=== PATIENT | male | born 1945 | race Caucasian/White ===

== ENCOUNTER → 2023-03-04 | Outpatient (CLI) | payer MEDICARE, SELFPAY ==
--- NOTE | 2023-03-04 | FLU_PTH ---
PATIENT: WU BREAUX LOC: [facility]#:[id number] AGE/SX: 77/M ROOM: RE03/04/[address]: Dr. Olga Lidia Lundberg MD : [id number] BED: DIS: 03/04/2023 SPEC #: [id number] RECD: 03/04/23 16:54 STATUS: MJ LEIJA #: [id number] DEN: 03/04/23 00:[address]: Olga Lidia Lundberg DEPT: CYTOLOGY RECD BY: Angel Yuan Tissues: A - Abdomen, NOS B - Abdomen, NOS Procedures: Special Stain Group II Surgery Specimen Level IV Cytospin Fluid HEADER OPERATION: Fine needle aspiration, RLQ abdominal wall mass PRE-OP DIAGNOSIS: Abnormal ultrasound abdominal wall TISSUE SUBMITTED: A - FNA right lower quadrant abdominal wall fluid, B - FNA right lower quadrant abdominal wall x6 slides DIAGNOSIS CYTOLOGY A. Fine needle aspiration, right lower quadrant abdominal wall fluid (cytospin and cell block): Negative for malignant cells. See comment. B. Fine needle aspiration, right lower quadrant abdominal wall (smears): Negative for malignant cells. See comment. AM:marilou 03/08/2023 COMMENT A. The specimen contains mostly blood with scattered macrophages. B. The specimen mostly contains blood with scattered mature adipose tissue and scattered macrophages. Clinical correlation is suggested. CYTOLOGY STUDY Slides are reviewed. CYTOLOGY GROSS A - Received is 20 ml of brown fluid labeled with the patient's name and and designated per the requisition as RLQ abdominal wall. Submitted for cytology preparation including cell block. B - Received are six smears labeled with the patient's name and designated per the requisition as RLQ abdominal wall. Submitted for staining. / marilou 03/07/2023 TC:2 CPT: 99133, 52389, 88583
== END | disposition home or self-care (01) ==
PROVIDERS: Referring Provider Surgery; Visit Provider Surgery
DX: R93.3 Abnormal findings on diagnostic imaging of other parts of digestive tract (principal)
CPT/HCPCS: 88108; 88305; 88313

== ENCOUNTER 2024-08-28 16:20 | Observation (INO) | payer MEDICARE, OTHER, SELFPAY ==
[2024-08-28] VITALS (11 sets, daily range): BP systolic 97–136; BP diastolic 59–83; PULSE 58–93; RESP 13–19; TEMP 36.3–36.8; O2SAT 96–99; BMI 26.5; BMI 26.7
--- NOTE | 2024-08-28 16:35 | EKG12_ITS ---
Test Reason : SYNCOPE Blood Pressure : */* mmHG Vent. Rate : 63 BPM Atrial Rate : 63 BPM P-R Int : 178 ms QRS Dur : 144 ms QT Int : 456 ms P-R-T Axes : 24 -31 -22 degrees QTcB Int : 466 ms Normal sinus rhythm Left axis deviation Right bundle branch block Abnormal ECG Confirmed by SANDRA RICHARD, MONIE ([id number]), sewer ESTELA MELO ([id number]) on 09/03/2024 11:18:20 AM Referred By: Confirmed By: MONIE FLORES MD
--- NOTE | 2024-08-28 16:43 | EDS_ITS ---
HPI History of Present Illness Chief Complaint: Syncope Informant: patient Onset/Context/Timing Onset: Today Current Severity: Gone Maximum Severity: Moderate Narrative Narrative: 79-year-old male history of polycythemia vera and hypertension of which she is on losartan. He was in his normal state of health that he is feeling well today. He ate breakfast had a small bowl of soup for lunch. He had gone to a driving range and hit golf balls today. He was at home with family he had just literally a sip of wine and started to smoke marijuana when he had a syncopal episode. who is with him said he was unresponsive for over a minute. No fall no injury. They deny any recent illness. No headache or chest pain. No shortness of breath or abdominal pain. No recent vomiting or diarrhea. No melena. He had a prior episode like this once before. Currently is feeling much better. Prior similar symptoms: Yes Recent Illness/Hospitalization: No PFSH PFSH Medical History Hypercholesteremia Hypertension Spinal stenosis BPH (benign prostatic hyperplasia) Glaucoma Polycythemia vera Home Medications ?Medication ?Instructions ?Recorded ?Last Taken ?Type atorvastatin 20 mg tablet 20 mg PO QHS 09/01/15 Unknow n History hydroxyurea 500 mg capsule 500 mg PO .COMPLEX 08/28/24 Unknown History losartan 25 mg tablet 25 mg PO DAILY 08/28/24 Unkn own History Allergy/AdvReac Type Severity Reaction Status Date / Time Penicillins Allergy Other Verified 08/28/24 16:28 Social History Smoking Status: Former smoker ROS ROS ED ROS Narrative Denies recent illness. Constitutional Constitutional ED: Denies chills or fever(s) Eyes Eyes: Denies blurry vision ENT ENT ED: Denies ear pain Cardiovascular Cardiovascular: Denies chest pain or palpitations Respiratory/Chest Respiratory/Chest: Denies cough or dyspnea Gastrointestinal Gastrointestinal: Denies abdominal pain Genitourinary Genitourinary ED: Denies dysuria or hematuria Musculoskeletal Musculoskeletal: Denies arthralgias or back pain Integumentary Denies abscess Neurologic Neurologic: Denies headache(s) Psychiatric Psychiatric: Denies anxiety Endocrine Endocrinology: Denies cold intolerance Hematologic/Lymphatic Hematologic/Lymphatic: Reports none Allergic/Immunologic Allergic/Immunologic ED: Denies mouth swelling, tongue swelling or urticaria EXAM Physical Exam Narrative Exam Narrative: Well-appearing 79-year-old male sitting upright in bed. No acute distress. and friend at bedside. His initial blood pressure 1 mildly low at 98/70. He denies being lightheaded or dizzy. H EENT exam pupils round react light. Extra motions are intact. No facial droop. Normal speech. No face or head trauma. Nontender. Neck nontender. Back nontender. Lungs clear to auscultation bilaterally. Heart regular rhythm rate about 60 no murmur. Chest wall ribs nontender. Abdomen soft nontender. Moving all 4 extremities. Nontender no edema. 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 Dorsi plantarflexion intact. No drift. Neurologically is awake and alert. Answering questions following commands. NIH is 0. Rapid hand movements normal. [id number] normal. Const Vital Signs: 08/28/24 16:21 08/28/24 16:31 08/28/24 16:41 Temperature 97.4 F L Temperature Source Oral Pulse Rate 59 L 63 Respiratory Rate 14 19 H Respiratory Effort Blood Pressure 98/70 99/72 Blood Pressure Mean 79 81 Pulse Ox 98 98 Oxygen Delivery Method Room Air Room Air Room Air 08/28/24 17:02 08/28/24 17:15 08/28/24 17:18 Temperature Temperature Source Pulse Rate 62 61 Respiratory Rate 13 14 Respiratory Effort Normal Non-Labored Blood Pressure 101/61 Blood Pressure Mean 74 Pulse Ox 97 Oxygen Delivery Method 08/28/24 17:30 08/28/24 17:45 08/28/24 18:00 Temperature Temperature Source Pulse Rate 58 L 64 59 L Respiratory Rate 14 19 H 13 Respiratory Effort Blood Pressure 97/61 98/63 100/63 Blood Pressure Mean 74 75 76 Pulse Ox 98 97 96 Oxygen Delivery Method Room Air Room Air 08/28/24 18:15 Temperature Temperature Source Pulse Rate 64 Respiratory Rate 17 Respiratory Effort Blood Pressure 104/63 Blood Pressure Mean 76 Pulse Ox 99 Oxygen Delivery Method Positive well nourished and well developed; Negative for obese, cachectic, contractures or unkempt General Appearance ED: well developed and NAD; Negative for unkempt, cachectic, contractures, cyanotic, diaphoretic or pallor Nutritional Appearance: Negative for cachectic or obese HEENT Reports moist mucous membranes Negative for trauma or tenderness Eyes PERRL and EOMs intact bilaterally General Eye ED: Negative for pale conjunctiva or scleral icterus Neck no lymphadenopathy, supple and no JVD General: Negative for tenderness Chest Wall inspection of chest normal and palpation of chest normal Chest: Negative for other Resp normal respiratory effort and clear to auscultation bilaterally Effort and Inspection: Negative for retractions Auscultation: Negative for rales, rhonchi, wheezes or diminished lung sounds Cardio regular rate, regular rhythm, S1 normal heart sound, S2 normal heart sound and no murmurs Rate: Negative for bradycardia or tachycardic GI normal to inspection, nondistended, normoactive bowel sounds, non-tender, non- distended and no masses Palpation: soft; Negative for tender or guarding Back/Spine no CVA tenderness General Back: Negative for CVA tenderness Cervical Spine: Negative for cervical spine tenderness Thoracic Spine / Upper Back: Negative for thoracic spinal tenderness or paraspinal muscle tenderness Lumbar Spine / Lower Back: Negative for lumbar spinal tenderness Extremity normal to inspection General Extremety ED: Negative for edema or tenderness General Extremity: Negative for edema Neuro oriented x3, CN's II-XII intact bilaterally and no sensory deficits noted Sensorium / Orientation: alert; Negative for orientation impaired, lethargic or stuporous Motor Exam: strength 5/5 throughout Psych mental status grossly normal Appearance: Negative for unkempt Attitude: No agitated Mood & Affect: Negative for depressed, anxious or tearful Skin no rashes or lesions noted, no wounds and skin turgor normal General Skin Exam: elasticity normal; Negative for jaundice or pallor Lesions: No lesion noted Rashes: No rashes noted Trauma: Negative for abrasion Wounds: Negative for wounds noted MDM MDM MDM Narrative Medical decision making narrative: 79-year-old male syncopal episode at home currently resolved. He is mildly hypotensive pressures 98/70. Has been eating and drinking well. He has had no vomiting or diarrhea. He is on antihypertension meds but those have not recently changed. Undergo cardiac workup. Currently his exam is benign. Repeat exam at 7:45 PM patient is doing well. at bedside. Currently he is doing well. Exam benign and unchanged. We discussed his test results. Clinically he is mildly dehydrated. He is mildly hypotensive. He will be given a liter normal saline. He will be admitted for syncope. Dehydration. History & Record Review Discussion w/independent historian: Patient Additional record(s) reviewed:: Prior inpatient record, Prior outpatient record, Prior ED visit and Prior labs Lab Data Attestation: I reviewed the patient's lab results. Lab results narrative: CBC shows normal white count 8. H&H 14 and 41. Platelets 504. Electrolytes show gap 12. BUN of 15 creatinine 1.2. Glucose 131. Troponins 15. Labs: Laboratory Results - last 24 hr 08/28/24 16:20 WBC 8.4 RBC 4.17 L Hgb 14.9 Hct 41.8 MCV 100.2 H MCH 35.7 H MCHC 35.6 RDW Std Deviation 47.3 H RDW Coeff of Josue 12.9 Plt Count 504 H MPV 9.2 Immature Gran % (Auto) 0.200 Neut % (Auto) 61.6 Lymph % (Auto) 31.3 [place] % (Auto) 5.5 Eos % (Auto) 0.7 Baso % (Auto) 0.7 Absolute Neuts (auto) 5.2 Absolute Lymphs (auto) 2.63 Nucleated RBC % 0 Sodium 139 Potassium 3.7 Chloride 103 Carbon Dioxide 24.9 Anion Gap 12 BUN 15 Creatinine 1.22 H Estim Creat Clear Calc 46.66 L Est GFR (MDRD) Non-Af 61 BUN/Creatinine Ratio 12.2 Glucose 131 H Calcium 8.6 Troponin T High Sens 15 Radiography Chest X-Ray - ED: 1 View, Read by ED Physician, Read by Radiologist, Heart, Lungs, Mediastinum, Bony Structures, No Acute Disease and Chronic Changes Diagnostic Testing: Clinical Impression(s) from Imaging Studies Chest X-Ray 08/28/24 16:45 IMPRESSION: 1. No convincing or no visible acute cardiopulmonary findings 2. Additional description as above. Reading Location: [facility] No chest x-ray, portable, single view interpreted by myself and radiologist shows no acute abnormality. Normal cardiac silhouette. Normal lung rios. Chronic changes. Rhythm Strip Rhythm Strip: Sinus Rhythm Rate: 63 Ectopy: None EKG Initial EKG: Attestation: I personally reviewed and interpreted this EKG as follows: Interpretation: Sinus Rhythm, No Acute Injury Pattern and RBBB Comments: Normal sinus rhythm rate of 63 no acute signs of IN or ischemia. Right bundle branch block. Discharge Plan Triage Chief Complaint: Syncope ED Provider: Raleigh Sanchez Dx/Rx/DC Orders Clinical Impression: Syncope, Acute hypotension, Acute dehydration Prescriptions: No Action atorvastatin 20 MG tablet 20 mg PO QHS hydroxyurea 500 mg capsule 500 mg PO .COMPLEX Patient Comments: take 1 capsule by mouth once daily TUESDAY THROUGH TUESDAY AND 2 CAPSULES ON SATURDAYS AND SUNDAYS Rx Instructions: 500 mg orally ONCE DAILY TUESDAY THROUGH TUESDAY, AND 2 CAPSULES ON TUESDAY A Tuesday; losartan 25 mg tablet 25 mg PO DAILY Primary Care Provider: Shashi Villarreal Referrals: Shashi Villarreal MD [Primary Care Provider] - Print Language: [place] Disposition Disposition: Acute Care Hospital [facility]
--- NOTE | 2024-08-28 16:45 | RAD_ITS ---
PROCEDURE: CHEST 1 VIEW (PORTABLE) (RADCXPA_P), 08/28/2024 REASON FOR EXAM: CHEST PAIN TECHNIQUE: A single portable AP view of the chest was obtained. COMPARISON: None FINDINGS: Heart: Unremarkable. Mediastinum: Unremarkable. Lungs/pleura: Slight hypoinflation with vascular crowding. No convincing focal consolidation. No sizeable pleural effusion or visible pneumothorax. Bones: Partially imaged degenerative changes of the shoulders.. Lines and support devices: None. RAD/Chest 1 View (Portable) IMPRESSION: 1. No convincing or no visible acute cardiopulmonary findings 2. Additional description as above. Reading Location: [id number]
[2024-08-28 16:48] LABS: Absolute Lymphocyte Count 2.63 X10^3/uL (0.83-4.51); Absolute Neutrophil Count 5.2 X10^3/uL (2.0-7.7); Basophil# 0.06 X10^3/uL; Basophil% 0.7 % (0-1); Eosinophil# 0.06 X10^3/uL; Eosinophils% 0.7 % (0-5); Hematocrit 41.8 % (40-54); Hemoglobin 14.9 g/dL (13.0-16.5); Lymphocyte # 2.63 X10^3/ul (0.83-4.51); Lymphocyte % 31.3 % (19-41); Mean Corp Hgb Conc 35.6 g/dL (32-36); Mean Corpuscular Hgb 35.7 pg (27.0-32.0); Mean Corpuscular Volume 100.2 fL (80-94); Mean Platelet Vol. 9.2 fl (6.2-12.0); Monocyte# 0.46 X10^3/uL; Monocyte% 5.5 % (0-10); NRBC Flagged by Analyzer 0 % (0-5); Neutrophil # 5.17 X10^3/uL (2.7-7.7); Neutrophil % 61.6 % (47-70); Platelet Count 504 K/mm3 (150-450); RBC Distribution Width CV 12.9 % (11.6-14.6); RBC Distribution Width SD 47.3 fl (35.1-43.9); Red Blood Count 4.17 M/mm3 (4.6-6.2); White Blood Count 8.4 K/mm3 (4.4-11.0)
[2024-08-28 17:06] LABS: Anion Gap 12 (5-15); BUN 15 mg/dL (4-19); BUN/Creat Ratio 12.2 RATIO (10-20); Calcium,Total 8.6 mg/dL (7.6-11.0); Carbon Dioxide 24.9 mmol/L (21.0-32.0); Chloride 103 mmol/L (98-108); Creatinine, Serum 1.22 mg/dL (0.70-1.20); EST Glomerular Filtration Rate 61 (>60); Estimated Creatinine Clearance 46.66 ml/min (50-250); Glucose 131 mg/dL (70-99); Potassium 3.7 mmol/L (3.3-5.1); Sodium Level 139 mmol/L (133-145); Troponin T High Sensitivity 15 ng/L (<=22)
[2024-08-28] MEDS: 0.9% Normal Saline (1000mL) 1,000 ML 999 ML IV (19:52)
--- NOTE | 2024-08-28 20:22 | HP.PCM.HOS_ITS ---
HPI - General General Date of Admission: 08/28/24 Date of Service: 08/28/24 Chief Complaint: syncope HPI Narrative WU BREAUX, is a 79 M with pmhx HTN, HLD, Polycythemia vera, BPH who presented to [facility] ED for syncope. Pt was feeling fine this AM, had breakfast, went to the driving range for about an hour, came back, had lunch. He was sitting with his and friends, had one sip of wine and smoked some marijuana. He suddenly became dizzy and weak, and then soon after he lost consciousness. His was trying to wake him up for about 1-2 minutes. He spontaneously regained consciousness. He had no fall and remained in the chair. He woke up feeling weak and that his arms were heavy. He has since mostly improved still feels a little weak. EMS was called and he was brought to the ER. In the ER he was found to have mildly decreased blood pressure at 98/70. He was given IV fluids with improvement to 110/61. EKG showed NSR with RBBB, negative troponin, negative CXR, Creatinine was slightly elevated at 1.22, Hgb normal at 14.9, platelets elevated at 504. glucose 131. He is agreeable to staying overnight for observation. [facility] Medical History Hypercholesteremia Hypertension Spinal stenosis BPH (benign prostatic hyperplasia) Glaucoma Polycythemia vera Home Medications ?Medication ?Instructions ?Recorded ?Last Taken ?Type atorvastatin 20 mg tablet 20 mg PO QHS 09/01/15 Unknow n History ezetimibe 10 mg tablet 10 mg PO DAILY 08/28/2408/18 20:52 History 10 mg hydroxyurea 500 mg capsule 500 mg PO .COMPLEX 08/28/24 08/27/24 20:50 History 500 mg latanoprost 0.005 % eye drops 1 drp ophthalmic (eye) Q HS 08/28/24 08/27/24 20:52 History 1 drp losartan 25 mg tablet 25 mg PO DAILY 08/28/2408/18 20:52 History 25 mg Allergy/AdvReac Type Severity Reaction Status Date / Time Penicillins Allergy Other Verified 08/28/24 16:28 Surgical History no surgical history no surgical history Social History (Updated 08/28/24 @ 20:30 by VALENCIA Mohr) household members: spouse current occupational status: retired Smoking Status: Former smoker alcohol intake: current alcohol intake frequency: holidays/special occasions only Alcohol type: wine substance use type: marijuana ROS Constitutional Constitutional: Reports weakness; Denies anorexia, chills, fatigue or fever(s) Eyes Eyes: Denies blurry vision or change in vision ENT HEENT: Denies abnormal hearing, ear pain or headache(s) Cardiovascular Cardiovascular: Reports syncope; Denies chest pain or dyspnea on exertion Respiratory/Chest Respiratory/Chest: Denies cough, dyspnea or productive cough Gastrointestinal Gastrointestinal: Denies abdominal pain, diarrhea, nausea or vomiting Genitourinary Genitourinary: Denies burning urination, difficulty urinating or dysuria Musculoskeletal Musculoskeletal: Denies arthralgias or back pain Neurologic Neurologic: Denies abnormal gait, abnormal speech or confusion Psychiatric Psychiatric: Denies anxiety or depression Endocrine Endocrinology: Denies change in body appearance Hematologic/Lymphatic Hematologic/Lymphatic: Denies anemia Allergic/Immunologic Allergic/Immunologic: Denies rhinitis Vital Signs Vital Signs Vital Signs: 08/28/24 16:21 08/28/24 16:31 08/28/24 16:41 Temperature 97.4 F L Temperature Source Oral Pulse Rate 59 L 63 Respiratory Rate 14 19 H Respiratory Effort Blood Pressure 98/70 99/72 Blood Pressure Mean 79 81 Pulse Ox 98 98 Oxygen Delivery Method Room Air Room Air Room Air 08/28/24 17:02 08/28/24 17:15 08/28/24 17:18 Temperature Temperature Source Pulse Rate 62 61 Respiratory Rate 13 14 Respiratory Effort Normal Non-Labored Blood Pressure 101/61 Blood Pressure Mean 74 Pulse Ox 97 Oxygen Delivery Method 08/28/24 17:30 08/28/24 17:45 08/28/24 18:00 Temperature Temperature Source Pulse Rate 58 L 64 59 L Respiratory Rate 14 19 H 13 Respiratory Effort Blood Pressure 97/61 98/63 100/63 Blood Pressure Mean 74 75 76 Pulse Ox 98 97 96 Oxygen Delivery Method Room Air Room Air 08/28/24 18:15 08/28/24 19:57 08/28/24 20:00 Temperature 98.3 F Temperature Source Pulse Rate 64 64 93 Respiratory Rate 17 17 18 Respiratory Effort Blood Pressure 104/63 104/63 110/61 Blood Pressure Mean 76 76 77 Pulse Ox 99 99 98 Oxygen Delivery Method Weight Weight: 76.9 kg Body Mass Index (BMI) 26.5 Physical Exam Const alert, oriented x3 and no apparent distress HEENT normocephalic and head/scalp atraumatic Eyes PERRL and EOMs intact bilaterally Neck no lymphadenopathy and no carotid bruits Resp normal respiratory effort, no retractions, no use of accessory muscles and clear to auscultation bilaterally Cardio regular rate, regular rhythm and no murmurs GI normal to inspection, nondistended, normoactive bowel sounds, soft to palpation and non-tender Extremity normal to inspection, full ROM and no clubbing, cyanosis or edema Skin Skin Narrative: no wounds noted Neuro oriented x3 Psych affect normal Results Lab / Micro Data 08/28/24 16:20 08/28/24 16:20 Labs: Laboratory Results - last 24 hr 08/28/24 16:20: WBC 8.4, RBC 4.17 L, Hgb 14.9, Hct 41.8, MCV 100.2 H, MCH 35.7 H , MCHC 35.6, RDW Std Deviation 47.3 H, RDW Coeff of Josue 12.9, Plt Count 504 H, MPV 9.2, Immature Gran % (Auto) 0.200, Neut % (Auto) 61.6, Lymph % (Auto) 31.3, Scott % (Auto) 5.5, Eos % (Auto) 0.7, Baso % (Auto) 0.7, Absolute Neuts (auto) 5.2, Absolute Lymphs (auto) 2.63, Nucleated RBC % 0, Sodium 139, Potassium 3.7, Chloride 103, Carbon Dioxide 24.9, Anion Gap 12, BUN 15, Creatinine 1.22 H, E stim Creat Clear Calc 46.66 L, Est GFR (MDRD) Non-Af 61, BUN/Creatinine Ratio 12.2, Glucose 131 H, Calcium 8.6, Troponin T High Sens 15 Rhythm Strip Rhythm Strip: Sinus Rhythm Rate: 63 Ectopy: None Imaging Radiology Impression Chest X-Ray 08/28/24 16:45 IMPRESSION: 1. No convincing or no visible acute cardiopulmonary findings 2. Additional description as above. Reading Location: [facility] Assessment & Plan Assessment/Plan (1) Syncope: PLAN: 1. Syncope - brief syncopal episode while sitting in a chair, no fall or head strike, note slight alcohol and marijuana intake at the time, occurred today in presence of , became suddenly dizzy then unconscious approximately 1-2 minutes before spontaneously regaining conscious. Pt nearly at baseline at this point with reporting only slight weakness. Brought to the ER by squad found to have mildly low BP which improved with fluids, neg troponin, EKG NSR with RBBB, neg CXR, slightly elevated Creatinine at 1.22, slightly elevated glucose 131. No recent illness/infection. Pt will be kept in PCU on observation, maintain telemetry, cycle cardiac enzymes, repeat AM labs, repeat EKG in AM, Echo in the AM, stress test, carotid ultrasound, check orthostatic vitals, IV fluids to run at 100cc/hr. 2. PMhx htn - continue losartan 3. HLD - on statin 4. Hx polycythemia vera - note platelets elevated as well as MCV and MCH. notes he was supposed to follow up with [facility] oncology for this tomorrow. He undergoes therapeutic phlebotomy about 2-3 x per year. Pt on hydroxyurea. DVT ppx: lovenox CODE status : discussed with pt and he wishes to remain full code.
[2024-08-28] MEDS: 0.9% Normal Saline (1000mL) 1,000 ML 100 ML IV (21:10)
[2024-08-28 21:24] LABS: Troponin T High Sens 2 HR 16 ng/L (<=22)
[2024-08-28] MEDS: Latanoprost 0.005% 1 Bottle 1 DRP EACH EYE (22:32)
[2024-08-29 03:00] VITALS: BP 109/68; PULSE 64; RESP 16; TEMP 36.8; O2SAT 98
--- NOTE | 2024-08-29 05:55 | EKG12_ITS ---
Test Reason : STRESS TEST Blood Pressure : */* mmHG Vent. Rate : 61 BPM Atrial Rate : 61 BPM P-R Int : 182 ms QRS Dur : 136 ms QT Int : 442 ms P-R-T Axes : 52 -41 -24 degrees QTcB Int : 444 ms Normal sinus rhythm Left axis deviation Right bundle branch block Abnormal ECG When compared with ECG of 28-Aug-2024 16:49, MANUAL COMPARISON REQUIRED DATA IS UNCONFIRMED Confirmed by SANDRA RICHARD, MONIE ([id number]), advertising editor ESTELA MELO ([id number]) on 09/03/2024 11:41:00 AM Referred By: Confirmed By: OMNIE FLORES MD
--- NOTE | 2024-08-29 05:55 | CDU_ITS ---
Reason For Study Reason For Study: Syncope Rt. Velocities/BP Lt. Velocities/BP Prox CCA 60.0/20.4 cm/sec. Prox CCA 99.7/30.3 cm/sec. Mid CCA 94.1/29.2 cm/sec. Mid CCA 96.1/32.1 cm/sec. Dist CCA 90.8/24.8 cm/sec. Dist CCA 118.0/32.1 cm/sec. Prox ICA 71.0/18.2 cm/sec. Prox ICA 99.1/30.8 cm/sec. Mid ICA 75.0/27.9 cm/sec. Mid ICA 84.7/35.6 cm/sec. Dist ICA 94.6/37.0 cm/sec. Dist ICA 85.3/38.0 cm/sec. Rt. ICA/CCA = 1.0. Lt. ICA/CCA = 1.0. Prox ECA 90.0/20.1 cm/sec. Prox ECA 74.3/12.7 cm/sec. Rt. Vert. 61.1/28.1 cm/sec. Lt. Vert. 57.2 cm/sec. Right Extracranial There is homogeneous, smooth atherosclerotic plaque noted in the right common carotid artery. There is heterogeneous, irregular atherosclerotic plaque noted in the right internal carotid artery. The right internal carotid artery is very tortuous. There is heterogeneous, irregular atherosclerotic plaque noted in the right external carotid artery. Antegrade flow is noted in the right vertebral artery. Left Extracranial There is homogeneous, smooth atherosclerotic plaque noted in the left common carotid artery. There is homogeneous, smooth atherosclerotic plaque noted in the left internal carotid artery. There is intimal thickening but no significant atherosclerotic plaque noted in the left external carotid artery. Antegrade flow is noted in the left vertebral artery. Procedure Carotid Duplex 33340. This is a Carotid Duplex examination using B-mode, color flow and specral Doppler. The exam was diagnostic. Exam performed portable in patient room. VL/Carotid Duplex Ultrasound Interpretation Summary Mild (<50%) stenosis right extracranial internal carotid. Mild (<50%) stenosis left extracranial internal carotid. Patent and antegrade vertebrals bilaterally. Ordering Physician: Maicol Correia Referring Physician: Miguel Villarreal Performed By: Jm Granados RVT
--- NOTE | 2024-08-29 05:55 | ECHOD_ITS ---
Reason For Study Reason For Study: SYNCOPE/NEAR SYNCOPE Procedure This was a 2D Doppler, Color Flow transthoracic echocardiogram. Exam performed in department. Left Ventricle Normal LV size. The estimated ejection fraction is 60 %. No evidence for diastolic dysfunction. No regional wall motion abnormalities noted. Right Ventricle Normal RV size. Normal systolic function. Atria The left and right atria are normal. No doppler evidence for ASD. Mitral Valve There is no mitral valve stenosis. Trivial mitral valve insufficiency. Tricuspid Valve There is no tricuspid stenosis. Trivial tricuspid valve insufficiency. Pulmonary artery systolic pressure is 25 mmHg. Aortic Valve Trisinus/trileaflet aortic valve. There is no aortic stenosis. No aortic valve insufficiency. Pulmonic Valve There is no pulmonic valvular stenosis. No pulmonic valve insufficiency. Great Vessels Normal sized aortic root. Pericardium/Pleural No pericardial effusion. MMode/2D Measurements & Calculations LVIDd: 4.7 cm IVSd: 1.1 cm Ao root diam: 3.5 cm LVIDs: 3.1 cm LVPWd: 1.1 cm RVDd: 3.6 cm FS: 35.1 % LAV(MOD-bp): 37.7 ml LVAd ap4: 26.4 cm2 SV(MOD-sp4): 46.7 ml LAV(MOD-bp) Indexed: 20.0 ml/m2 LVLd ap4: 7.5 cm SI(MOD-sp4): 24.8 ml/m2 LAV(MOD-sp2): 38.3 ml EDV(MOD-sp4): 77.9 ml LAV(MOD-sp4): 36.0 ml EDV(sp4-el): 78.9 ml LVAs ap4: 14.7 cm2 LVLs ap4: 6.4 cm ESV(MOD-sp4): 31.2 ml ESV(sp4-el): 28.7 ml EF(MOD-sp4): 60.0 % EF(sp4-el): 63.6 % SV(sp4-el): 50.2 ml LA A4 area: 15.4 cm2 LA dimension(2D): 3.8 cm RA A4 area: 15.9 cm2 TAPSE: 2.3 cm Time Measurements MV dec time: 0.24 sec Doppler Measurements & Calculations MV E max michael: 62.4 cm/sec Lat Peak E' Michael: 8.2 cm/sec Med Peak E' Michael: 8.9 cm/sec MV A max michael: 80.1 cm/sec E/E' lat: 7.6 E/E' med: 7.0 MV E/A: 0.78 Ao V2 max: 106.0 cm/sec LV V1 max: 82.3 cm/sec PA V2 max: 87.0 cm/sec Ao max P.5 mmHg LV V1 max P.7 mmHg TR max michael: 227.2 cm/sec TR max P.7 mmHg ECHO/Echo Complete Interpretation Summary The estimated ejection fraction is 60 %. No evidence for diastolic dysfunction. Trivial mitral valve insufficiency. Ordering Physician: Maicol Correia Referring Physician: KISHOR CASTREJON Performed By: Kyleigh Abrams RDCS
[2024-08-29] MEDS: Losartan Potassium 25 MG Tablet PO (06:23)
[2024-08-29 06:24] LABS: Absolute Lymphocyte Count 1.48 X10^3/uL (0.83-4.51); Absolute Neutrophil Count 3.9 X10^3/uL (2.0-7.7); Basophil# 0.03 X10^3/uL; Basophil% 0.5 % (0-1); Eosinophil# 0.06 X10^3/uL; Hematocrit 37.5 % (40-54); Hemoglobin 13.7 g/dL (13.0-16.5); Lymphocyte # 1.48 X10^3/ul (0.83-4.51); Lymphocyte % 25.6 % (19-41); Mean Corp Hgb Conc 36.5 g/dL (32-36); Mean Corpuscular Hgb 36.2 pg (27.0-32.0); Mean Corpuscular Volume 99.2 fL (80-94); Mean Platelet Vol. 9.3 fl (6.2-12.0); Monocyte# 0.32 X10^3/uL; Monocyte% 5.5 % (0-10); NRBC Flagged by Analyzer 0 % (0-5); Neutrophil # 3.89 X10^3/uL (2.7-7.7); Neutrophil % 67.2 % (47-70); Platelet Count 337 K/mm3 (150-450); RBC Distribution Width CV 12.8 % (11.6-14.6); RBC Distribution Width SD 46.7 fl (35.1-43.9); Red Blood Count 3.78 M/mm3 (4.6-6.2); White Blood Count 5.8 K/mm3 (4.4-11.0)
[2024-08-29 06:27] VITALS: BP 121/77; PULSE 64; RESP 16; TEMP 36.8; O2SAT 98
[2024-08-29 06:41] LABS: Anion Gap 9 (5-15); BUN 13 mg/dL (4-19); BUN/Creat Ratio 15.9 RATIO (10-20); Calcium,Total 8.1 mg/dL (7.6-11.0); Chloride 108 mmol/L (98-108); Creatinine, Serum 0.84 mg/dL (0.70-1.20); EST Glomerular Filtration Rate 89 (>60); Estimated Creatinine Clearance 67.76 ml/min (50-250); Glucose 88 mg/dL (70-99); Sodium Level 139 mmol/L (133-145)
--- NOTE | 2024-08-29 11:32 | STRESSREP ---
Stress Test Report Date: 08/29/2024 Procedure: Pharmacologic stress nuclear imaging study Indications: Syncope Consent: Per the patient Procedure: The patient underwent pharmacologic (Regadenoson) evaluation with a peak heart rate of 142 beats per minute (63%predicted maximal heart rate) and a peak blood pressure of 128/84 mmHg. The baseline ECG demonstrated normal sinus rhythm, right bundle branch block. EKG during lexiscan infusion revealed no significant ischemic changes. EKG post infusion revealed no significant ischemic changes [There were no cardiac dysrhythmias pretest, during pharmacologic infusion, or recovery]. [There was no complaint of chest discomfort during pharmacologic infusion or recovery]. The examination was discontinued secondary to completion of protocol. Impression: 1. Lexiscan stress test is negative for Lexiscan infusion induced EKG changes of ischemia. 2. Lexiscan stress test is negative for Lexiscan infusion induced chest pain. 3. Results of the nuclear portion of the test is as below Myocardial perfusion imaging study: Technique: The patient was injected with 11.8 millicuries of technetium 99m Cardiolite and subsequently rest SPECT Cardiolite nuclear imaging was obtained in the horizontal long, vertical long, and short axis views. The patient underwent pharmacologic [Regadenoson 0.4mg] evaluation. Please see above for details. The patient was injected with 34.1 millicuries of technetium 99m Cardiolite and subsequently stress SPECT Cardiolite nuclear imaging was obtained in the horizontal long, vertical long, and short axis views. A gated Cardiolite study at peak stress was obtained. Interpretation: Rest and stress SPECT Cardiolite nuclear imaging status post realignment, normalization, and attenuation correction demonstrate no evidence of significant ischemia or infarction. Diaphragmatic attenuation artifact noted. Gated images reveal no significant regional wall motion abnormalities. The reported LVEF is 62%. Impression: 1. There is no evidence of significant ischemia or infarction. 2. Estimated ejection fraction is 62%. This note was generated with [employer] software. It may contain incorrect words, spelling, and punctuation that were not noted in checking the note before signing.
[2024-08-29] MEDS: Ezetimibe 10 MG Tablet PO (11:54)
[2024-08-29 12:03] VITALS: BP 148/89; PULSE 70; RESP 16; TEMP 37; O2SAT 100
--- NOTE | 2024-08-29 15:14 | CASEMGMT ---
Met with patient to complete HATFIELD form. HATFIELD form explained to patient who voiced understanding and signed form. Original form placed in pt?s chart and copy provided to patient. Katelyn Chowdhury, Discharge Planning Asst
--- NOTE | 2024-08-29 15:38 | DCINST_ITS ---
Discharge Instructions Diet Discharge Diet: No restrictions DC O2, CPAP, BIPAP needs Home O2 Discharge instructions: No Dressing / Incision Discharge Activity: Return to Normal Activity Weight Bearing Status: Full weight bearing Follow Up Care Test Results: Test results from this visit will be discussed in further detail at your follow- up appointment, if applicable. Discharge Plan Admission Admit Date/Time: 08/28/24 20:11 Primary Reason for Your Visit: syncope etiology unknown Attending Provider: Lenard Ling Primary Care Provider: Shashi Villarreal Consulting Providers: Brain Jacobo Discharge Orders/Prescriptions Prescriptions: Continued atorvastatin 20 MG tablet 20 mg PO QHS hydroxyurea 500 mg capsule 500 mg PO .COMPLEX Patient Comments: take 1 capsule by mouth once daily TUESDAY THROUGH TUESDAY AND 2 CAPSULES ON SATURDAYS AND SUNDAYS Rx Instructions: 500 mg orally ONCE DAILY TUESDAY THROUGH TUESDAY, AND 2 CAPSULES ON TUESDAY AND TUESDAY; losartan 25 mg tablet 25 mg PO DAILY latanoprost 0.005 % drops 1 drp ophthalmic (eye) QHS ezetimibe 10 mg tablet 10 mg PO DAILY Referrals / Follow Up: Shashi Villarreal MD [Primary Care Provider] - (Call his office to see if you need a follow-up appointment before your next scheduled appointment) Disposition Disposition (needs filled in before D/C Order can be placed): Home, Self Care
--- NOTE | 2024-08-29 15:40 | DS.PCM_ITS ---
Providers Date of Admission: 08/28/24 Date of Discharge: 08/29/24 Primary Care Physician: Dr. Shashi Castrejon MD Reason For Visit: SYNCOPE Diagnosis Discharge Diagnosis (1) Syncope: Status: Acute Code(s): R55 - Syncope and collapse Plan 1. Syncope-possibly vasovagal in nature #2 mild dehydration #3 polycythemia vera Medications at Discharge Home Medications atorvastatin 20 mg tablet 20 mg PO QHS 09/01/15 ezetimibe 10 mg tablet 10 mg PO DAILY 08/28/24 hydroxyurea 500 mg capsule 500 mg PO .COMPLEX 08/28/24 latanoprost 0.005 % eye drops 1 drp ophthalmic (eye) QHS 08/28/24 losartan 25 mg tablet 25 mg PO DAILY 08/28/24 Hospital Course Operations None Procedures 2-D Echocardiogram, Stress test and - (Carotid duplex scan) Summary of Care Provided Minutes Spent on Discharge: 31 Hospital Course: This 79-year-old white male was seen in the emergency room at [facility] after he had a brief episode of syncope at home while sitting at a table, patient awoke momentarily after the syncopal episode and there was no evidence of seizure activity and the patient was not confused. Labs obtained in the emergency room showed an elevated creatinine of 1.22, CBC was remarkable for platelet count of 504,000. Patient was placed in observation status on PCU and underwent a carotid duplex ultrasound which was unremarkable, echocardiogram was obtained and this was also unremarkable, patient underwent a nuclear stress test which showed no evidence of reversible ischemia. Patient's labs improved and his creatinine normalized. The etiology for the patient's syncope was not confirmed but felt to be vasovagal in nature. On 08/29/2024, patient was seen and examined: On examination he appeared in good health and spirits. Vital signs as documented. Skin warm and dry and without overt rashes. Neck without JVD, neck was supple, trachea midline, thyroid was normal. Lungs clear bilaterally, normal air movement was noted. Heart exam notable for regular rhythm, normal sounds and absence of murmurs, rubs or gallops. Abdomen unremarkable and without evidence of organomegaly, masses, or abdominal aortic enlargement. Bowel sounds are present, abdomen is not distended. Extremities nonedematous, no cyanosis was noted, no clubbing was noted. Neuro: Cranial nerves II through XII are grossly intact, no focal motor deficits were noted, sensation to light touch and pinprick intact, motor exam 5/5 throughout. Psych: Patient is alert and oriented x3, he does not appear anxious or depressed, he does not appear agitated. Patient was discharged home in stable condition on 08/29/2024. Weight / BMI Weight Weight: 77.4 kg Body Mass Index (BMI) 26.7 ABG / Lab / Microbiology Data 08/29/24 05:30 08/29/24 05:30 Laboratory: Laboratory Results - last 24 hr 08/28/24 16:20: WBC 8.4, RBC 4.17 L, Hgb 14.9, Hct 41.8, MCV 100.2 H, MCH 35.7 H , MCHC 35.6, RDW Std Deviation 47.3 H, RDW Coeff of Josue 12.9, Plt Count 504 H, MPV 9.2, Immature Gran % (Auto) 0.200, Neut % (Auto) 61.6, Lymph % (Auto) 31.3, Seneca % (Auto) 5.5, Eos % (Auto) 0.7, Baso % (Auto) 0.7, Absolute Neuts (auto) 5.2, Absolute Lymphs (auto) 2.63, Nucleated RBC % 0, Sodium 139, Potassium 3.7, Chloride 103, Carbon Dioxide 24.9, Anion Gap 12, BUN 15, Creatinine 1.22 H, E stim Creat Clear Calc 46.66 L, Est GFR (MDRD) Non-Af 61, BUN/Creatinine Ratio 12.2, Glucose 131 H, Calcium 8.6, Troponin T High Sens 15 08/28/24 20:40: Troponin T Hi Sens 2 Hr 16 08/29/24 05:30: WBC 5.8, RBC 3.78 L, Hgb 13.7, Hct 37.5 L, MCV 99.2 H, MCH 36.2 H, MCHC 36.5 H, RDW Std Deviation 46.7 H, RDW Coeff of Josue 12.8, Plt Count 337, MPV 9.3, Immature Gran % (Auto) 0.200, Neut % (Auto) 67.2, Lymph % (Auto) 25.6, Seneca % (Auto) 5.5, Eos % (Auto) 1.0, Baso % (Auto) 0.5, Absolute Neuts (auto) 3.9, Absolute Lymphs (auto) 1.48, Nucleated RBC % 0, Sodium 139, Potassium 4.0, Chloride 108, Carbon Dioxide 22.0, Anion Gap 9, BUN 13, Creatinine 0.84, Estim Creat Clear Calc 67.76, Est GFR (MDRD) Non-Af 89, BUN/Creatinine Ratio 15.9, Glucose 88, Calcium 8.1 Radiography Diagnostic Testing: Radiology Impression Chest X-Ray 08/28/24 16:45 IMPRESSION: 1. No convincing or no visible acute cardiopulmonary findings 2. Additional description as above. Reading Location: [facility] Carotid Duplex 08/29/24 05:55 Interpretation Summary Mild (<50%) stenosis right extracranial internal carotid. Mild (<50%) stenosis left extracranial internal carotid. Patent and antegrade vertebrals bilaterally. Ordering Physician: Maicol Correia Referring Physician: Miguel Castrejon Performed By: Jm Granados Emiliana Echocardiogram 08/29/24 05:55 Interpretation Summary The estimated ejection fraction is 60 %. No evidence for diastolic dysfunction. Trivial mitral valve insufficiency. Ordering Physician: Maicol Correia Referring Physician: MIGUEL CASTREJON Performed By: Kyleigh Abrams MELINA D/C Instructions Discharge Diet: No restrictions Weight Bearing Status: Full weight bearing DC O2, CPAP, BIPAP Needs Home O2 Discharge instructions: No Meaningful Use Info Meaningful Use Meaningful Use Diagnoses (Choose all that apply): None applicable Ischemic Stroke Statin Dosing Therapy Reference: STATIN DOSE THERAPY REFERENCE: * Patients > 75 years receive moderate or high dose statin therapy. * Patients 75 years or YOUNGER should receive HIGH intensity statin dose unless contraindicated. You will be required to document reason for non-treatment if statin daily dose does not meet guidelines. HIGH DOSE STATIN THERAPY DAILY Atorvastatin > than or = to 40 mg Rosuvastatin > than or = to 20 mg Amlodipine + Atorvastatin > than or = to 2.5/40 mg Ezetimibe + Simvastatin 10/80 mg Simvastatin 80mg Discharge Plan Admission Admit Date/Time: 08/28/24 20:11 Primary Reason for Your Visit: syncope etiology unknown Attending Provider: Lenard Ling Primary Care Provider: Shashi Castrejon Consulting Providers: Brain Jacobo Discharge Orders/Prescriptions Prescriptions: Continued atorvastatin 20 MG tablet 20 mg PO QHS hydroxyurea 500 mg capsule 500 mg PO .COMPLEX Patient Comments: take 1 capsule by mouth once daily TUESDAY THROUGH TUESDAY AND 2 CAPSULES ON SATURDAYS AND SUNDAYS Rx Instructions: 500 mg orally ONCE DAILY TUESDAY THROUGH TUESDAY, AND 2 CAPSULES ON TUESDAY AND TUESDAY; losartan 25 mg tablet 25 mg PO DAILY latanoprost 0.005 % drops 1 drp ophthalmic (eye) QHS ezetimibe 10 mg tablet 10 mg PO DAILY Referrals / Follow Up: Shashi Castrejon MD [Primary Care Provider] - (Call his office to see if you need a follow-up appointment before your next scheduled appointment) Disposition Disposition (needs filled in before D/C Order can be placed): Home, Self Care Charges/Coding Visit Charges Inpatient E&M: 63681 Disch Hosp >30min
--- NOTE | 2024-08-29 15:50 | CASEMGMT ---
KIARA ABDALLA note: Discharge order is in. RN CM to room. Pt resting in bed, family @ bedside. Pt states he is ready to go home and denies having any discharge needs/concerns. Luma NORIEGAN KIARA CM
[2024-08-29 15:53] VITALS: BP 133/80; PULSE 65; RESP 16; TEMP 36.8; O2SAT 100
== END 2024-08-29 16:37 | disposition home or self-care (01) ==
LOC: ED 19:54 → PCU 21:00
PROVIDERS: Physician Assistant; Admitting Provider Internal Medicine; Emergency Provider Emergency Medicine; PCP Family Medicine; Visit Provider Internal Medicine
DX: R55 Syncope and collapse (principal); D45 Polycythemia vera; E78.00 Pure hypercholesterolemia, unspecified; Z87.891 Personal history of nicotine dependence; I10 Essential (primary) hypertension; E86.0 Dehydration; I95.9 Hypotension, unspecified; H40.9 Unspecified glaucoma; Z79.899 Other long term (current) drug therapy; I65.23 Occlusion and stenosis of bilateral carotid arteries; I34.0 Nonrheumatic mitral (valve) insufficiency; R94.31 Abnormal electrocardiogram [ECG] [EKG]; I45.10 Unspecified right bundle-branch block
CPT/HCPCS: 36415; 71045; 78452; 80048; 84484; 85025; 93005; 93017; 93306; 93880; 96360; 96361; 99221; 99285; A9500; A4216; G0378; J2785